=== PATIENT | male | born 1950 | race Caucasian/White ===

== ENCOUNTER → 2020-07-31 | Outpatient (CLI) | payer OTHER | END | disposition home or self-care (01) | LOC: CFH 13:23 → EDSTATUS 14:15 | PROVIDERS: ATTEND Internal Medicine | DX: M19.012 Primary osteoarthritis, left shoulder (principal); M75.102 Unspecified rotator cuff tear or rupture of left shoulder, not specified as traumatic; M25.712 Osteophyte, left shoulder; M25.412 Effusion, left shoulder; M75.52 Bursitis of left shoulder ==

== ENCOUNTER → 2020-11-27 | Outpatient (CLI) | payer MEDICARE ==
[~2020-11-27] MED LIST: AMLO5TAB4 PO; ASCO100018 PO; CALC1CAP8 PO; CHOL10003 PO; CYAN25009 PO; FINA5TAB4 PO; LOSA50TA14 PO; METF500T17 PO; ROSU5TAB PO; TRAZ-175 PO
[2020-11-27 12:29] LABS: CHLORIDE 108 mmol/L (98-107)
[2020-11-27 12:43] LABS: ALANINE AMINOTRANSFERASE 17 U/L (12-78); ALKALINE PHOSPHATASE 94 U/L (45-117); ANION GAP 7 mmol/L (5-15); BILIRUBIN,TOTAL 0.6 mg/dL (0.2-1.0); CALCIUM 9.1 mg/dL (8.5-10.1); CREATININE 0.83 mg/dL (0.7-1.3); TOTAL PROTEIN 7.3 g/dL (6.4-8.2)
== END | disposition home or self-care (01) ==
LOC: STAR 09:54
PROVIDERS: ATTEND Orthopaedic Surgery Hand Surgery
DX: Z01.812 Encounter for preprocedural laboratory examination (principal); Z20.822 Contact with and (suspected) exposure to COVID-19; R94.31 Abnormal electrocardiogram [ECG] [EKG]; G56.02 Carpal tunnel syndrome, left upper limb
CPT/HCPCS: 36415; 80053; 93005; U0003

== ENCOUNTER 2020-12-03 06:17 | Day surgery (SDC) | payer MEDICARE ==
[~2020-12-03] VITALS: Ht 177.8 cm; Wt 90.2 kg
[2020-12-03] MEDS ORDERED: CHLORHEXIDINE 15 ML UDC ONE (07:04)
[2020-12-03] MEDS ORDERED: FENTANYL PF 100 MCG/2ML ONE (07:23)
[2020-12-03] MEDS ORDERED: OXYcodone 5 MG/5 ML ORAL.SOL UDC PO PRN (07:30)
[2020-12-03] MEDS ORDERED: HYDROmorphone 1 MG/ML, 1ML INJ IVPush PRN (07:30)
[2020-12-03] MEDS ORDERED: FENTANYL PF 100 MCG/2ML IV PRN (07:30)
[2020-12-03] MEDS ORDERED: LABETALOL 5MG/ML, 20ML IV PRN (07:30)
[2020-12-03] MEDS ORDERED: ONDANSETRON 2MG/ML, 2ML IVPush PRN (07:30)
[2020-12-03] MEDS ORDERED: hydrALAzine 20 MG/ML, 1ML IV PRN (07:30)
[2020-12-03] MEDS ORDERED: LACTATED RINGERS 1,000 ML IV SCH (07:30)
[2020-12-03] MEDS ORDERED: LORazepam 2 MG/ML, 1ML IVPush PRN (07:30)
[2020-12-03] MEDS ORDERED: EPHEDRINE 50 MG/ML, 1ML IVPush PRN (07:30)
[2020-12-03] MEDS ORDERED: METHOCARBAMOL 1,000 MG in DEXTROSE 5% 100 ML IV PRN (07:30)
[2020-12-03] MEDS ORDERED: CHLORHEXIDINE 15 ML UDC PO ONE (07:30)
[2020-12-03] MEDS ORDERED: ACETAMINOPHEN 325 MG TABLET PO PRN (07:30)
[2020-12-03] MEDS ORDERED: BUPIVACAINE/PF 0.5% ONE (07:36)
[2020-12-03] MEDS ORDERED: LIDOCAINE-MPF 1%, 5ML ONE (07:36)
[2020-12-03] MEDS ORDERED: EPINEPHRINE 1 MG/ML, 1ML ONE (07:36)
[2020-12-03] MEDS ORDERED: PROPOFOL 50 ML ONE ×2 (07:39→08:08)
[2020-12-03] MEDS ORDERED: CEFAZOLIN 1,000 MG ONE (07:45)
== END 2020-12-03 10:20 | disposition home or self-care (01) ==
LOC: OUT 06:17
PROVIDERS: ATTEND Orthopaedic Surgery Hand Surgery
DX: G56.02 Carpal tunnel syndrome, left upper limb (principal); I10 Essential (primary) hypertension; E11.9 Type 2 diabetes mellitus without complications; M19.90 Unspecified osteoarthritis, unspecified site; E78.00 Pure hypercholesterolemia, unspecified; M81.0 Age-related osteoporosis without current pathological fracture; Z79.84 Long term (current) use of oral hypoglycemic drugs; Z79.899 Other long term (current) drug therapy
CPT/HCPCS: 64721; 82962; J0171; J0690; J2704; J3010; J7120